=== PATIENT | female | born 1980 | race Caucasian/White ===

== ENCOUNTER 2017-04-13 09:47 | Emergency (ER) | payer BC ==
[2017-04-13 09:54] VITALS: RESP 18; O2SAT 97
--- NOTE | 2017-04-13 09:59 | EDPHY ---
H & P Time Seen by Provider: 04/13/17 09:50 HPI/ROS: CHIEF COMPLAINT: Right ankle injury HISTORY OF PRESENT ILLNESS: 37-year-old female presents to the emergency department by ambulance with right ankle injury. The patient was hiking and slipped and fell injuring her right ankle. She landed on her buttock area. She did not hit her head or lose consciousness. Denies neck or back pain. Denies chest pain or difficulty breathing. She has been unable to bear weight since the incident occurred just prior to arrival. She denies numbness or tingling in her toes. Denies injury to the right knee or hip. Denies symptoms in the left lower extremity or her upper extremities bilaterally. Unsure of her last tetanus shot. REVIEW OF SYSTEMS: Constitutional: No fever, no chills. Eyes: No double or blurry vision. ENT: No sore throat. Respiratory: No cough, no shortness of breath. Cardiac: No chest pain. Gastrointestinal: No abdominal pain, vomiting or diarrhea. Genitourinary: No dysuria. Musculoskeletal: No neck or back pain. Skin: No rashes. Neurological: No headache. Past Medical/Surgical History: Negative Smoking Status: Never smoked Physical Exam: General Appearance: Alert, no distress. Tearful. No physical signs of trauma to her head. Mentating normally and answering questions appropriately. Eyes: Pupils equal and round. Extraocular motions are all intact. ENT: Mouth: Mucous membranes moist. Respiratory: No wheezing, rhonchi, or rales, lungs are clear to auscultation. Cardiovascular: Regular rate and rhythm. Gastrointestinal: Abdomen is soft and nontender, no masses, no rebound or guarding, bowel sounds normal. Neurological: Alert and oriented x 3, cranial nerves II through XII grossly intact Skin: Abrasions noted to the anterior aspect of the right ankle as well as dorsal aspect of her right foot. No active bleeding noted. Normal sensation to light touch with normal 2 point discrimination. Warm and dry, no rashes. Musculoskeletal: Nontender to palpate along the cervical, thoracic or lumbar spine. Neck is supple. Extremities: Limited dorsi and plantar flexion secondary to pain. Difficult to assess ligament stability given her pain. Her right calf is nontender. Right knee is nontender. Full range of motion of the left lower extremity in her upper extremities bilaterally. Strong dorsalis pedis pulse on the dorsal aspect of her right foot. Psychiatric: Patient is oriented X 3, there is no agitation. Constitutional: Initial Vital Signs Temperature (C) 37.2 C 04/13/17 09:50 Heart Rate 101 H 04/13/17 09:50 Respiratory Rate 18 04/13/17 09:50 Blood Pressure 143/98 H 04/13/17 09:50 O2 Sat (%) 97 04/13/17 09:50 O2 Delivery Mode Room Air Allergies/Adverse Reactions: No Known Allergies Allergy (Unverified 04/13/17 09:50) Home Medications: Medication Instructions Recorded oxyCODONE/APAP /325 [Percocet 1 - 2 tab PO Q4-6PRN PRN #15 tab 04/13/17 5/325] Medical Decision Making - Diagnostics Imaging Results: Imaging Impressions Ankle X-Ray 04/13/17 09:51 Impression: Acute fracture through the distal right fibula, likely Martinez B. Imaging: I viewed and interpreted images myself Procedures: Patient was placed in 3 way Ortho Glass splint and examined post application in good placement with normal [employer]GER. ED Course/Re-evaluation: 37-year-old female presents to the emergency department with right ankle injury. X-rays reveal right distal fibular fracture which is intra-articular and displaced causing widening of the medial aspect of the ankle mortise. Patient understands that she has an unstable ankle that require surgical repair. I do not think she requires surgical repair today. She does not have any signs of open fracture. She did have some overlying very superficial abrasions that were cleansed. There is no active bleeding noted. I spoke with the on-call orthopedic surgeon, Dr. Hayden Valencia, who recommended patient could be discharged with splint, crutches and follow-up. The patient is from [place]. She was given options of surgical repair here although Dr. Hayden Valencia does not feel that the patient requires emergent surgery today. He recommended trying to gently reduce the ankle. There is no obvious dislocation however. The patient was placed in 3 way Ortho Glass splint with very gentle manipulation to the medial aspect of the medial malleolus. Once the splint was in place, the patient was feeling much better. She was given crutches and was able to ambulate to the bathroom, nonweightbearing on her right foot. The patient is comfortable being discharged home. She understands the importance of icing and elevating to help relieve swelling. She is going to follow up in [place]. She flies out tomorrow morning. She was given copies of her x-rays. I did offer admission to the hospital for pain control and the patient declined. Differential Diagnosis: Including but not limited to fracture, dislocation, contusion, sprain, compartment syndrome - Data Points Medications Given: Discontinued Medications Diphtheria/Tetanus/Acell Pertussis (Boostrix) 0.5 ml IM .ONCE ONE Stop: 04/13/17 10:04 Last Admin: 04/13/17 10:20 Dose: 0.5 ml Fentanyl (Sublimaze) 50 mcg IVP EDNOW ONE Stop: 04/13/17 11:51 Last Admin: 04/13/17 12:37 Dose: 50 mcg Hydromorphone HCl (Dilaudid) 0.5 mg IVP EDNOW ONE Stop: 04/13/17 10:47 Last Admin: 04/13/17 10:50 Dose: 0.5 mg Ondansetron HCl (Zofran) 4 mg IVP EDNOW ONE Stop: 04/13/17 12:55 Last Admin: 04/13/17 12:54 Dose: 4 mg Departure - Departure Disposition: Home, Routine, Self-Care Clinical Impression: Closed right ankle fracture Qualifiers: Encounter type: initial encounter Qualified Code(s): S82.891A - Other fracture of right lower leg, initial encounter for closed fracture Condition: Good Instructions: Ankle Fracture (ED) Additional Instructions: Keep splint on and keep it dry. Ice, elevate as much as possible to help reduce swelling. Ibuprofen 600 mg every 8 hours as needed for pain. Percocet for severe pain as directed. Call to arrange follow up with orthopedic surgeon this week. Tell them that you have a distal fibular fracture which is intra-articular and angulated and causing displacement with ligament injury. Tell them that you have an unstable ankle that will require surgical repair. Referrals: Hayden Valencia MD [Medical Doctor] - As per Instructions Prescriptions: oxyCODONE/APAP 5/325 [Percocet 5/325] 1 - 2 tab PO Q4-6PRN PRN #15 tab PRN Reason: For Moderate To Severe Pain
[2017-04-13] MEDS ORDERED: TDAP ADULT 0.5 ML INJ (BOOSTRIX) IM ONE (10:03)
[2017-04-13] MEDS ORDERED: HYDROmorphONE/DILAUDID 1 MG/ML INJ IVP ONE (10:46)
[2017-04-13] MEDS ORDERED: fentaNYL 100 MCG/2 ML INJ IVP ONE (11:50)
[2017-04-13] MEDS ORDERED: ONDANSETRON 4 MG/2 ML VIAL ONE (12:48)
[2017-04-13] MEDS ORDERED: ONDANSETRON 4 MG/2 ML VIAL IVP ONE (12:54)
[2017-04-13 14:13] VITALS: BP 142/87; PULSE 87; TEMP 98.1
== END 2017-04-13 14:13 | disposition home or self-care (01) ==
DX: S82.891A Other fracture of right lower leg, initial encounter for closed fracture (principal); W01.198A Fall on same level from slipping, tripping and stumbling with subsequent striking against other object, initial encounter; Y99.8 Other external cause status; Y93.01 Activity, walking, marching and hiking; Z23 Encounter for immunization
CPT/HCPCS: 96374; J1170; J2405; J3010